=== PATIENT | female | born 1995 | race African-American/Black ===

== ENCOUNTER 2018-04-07 17:08 | Emergency (ER) | payer BC, SELFPAY ==
[~2018-04-07 17:08] MED LIST: ISOVUE-370 76%-LOCM 1 ML ONE
[2018-04-07 17:58] LABS: #Eosinphils 0.1 thou/uL (0.0-0.7); #Lymphocytes 1.6 thou/uL (1.20-3.40); #Monocytes 0.6 thou/uL (0.11-0.59); #Neutrophils 4.7 thou/uL (1.40-6.50); %Basophils 0.7 % (0.0-1.0); %Eosinophils 1.2 % (0.0-10.0); %Lymphocytes 22.2 % (21.0-51.0); %Monocytes 8.3 % (0.0-10.0); %Neutrophils 67.6 % (42.0-75.0); Hemoglobin 11.4 g/dL (12.0-16.0); Mean Corpuscular HGB CONC 34.4 g/dL (32.0-36.0); Mean Corpuscular Hemoglobin 31.4 pg (27.0-31.0); Mean Corpuscular Volume 91.2 fL (78.0-98.0); Mean Platelet Volume 7.4 fL (7.4-10.4); Platelet Count 241 thou/uL (130-400); RBC Distribution Width 11.9 % (11.5-14.5); Red Blood Cell (RBC) Count 3.63 mill/uL (4.20-5.40)
[2018-04-07 18:01] LABS: BHCG - Serum POSITIVE (NEGATIVE); Pregs Control Background? CLEAR/WHITE (CLR/WHITE); Pregs Control Bar Appear? YES (CONTROL BAR)
[2018-04-07 18:20] LABS: ALT (SGPT) 8 U/L (8-55); AST (SGOT) 11 U/L (5-34); Albumin 3.4 g/dL (3.5-5.0); Alkaline Phosphatase 66 U/L (40-150); Anion Gap 10 mmol/L (10-20); BUN (Urea Nitrogen) 10 mg/dL (7.0-18.7); Bilirubin, Total 0.6 mg/dL (0.2-1.2); Calc. Creatinine Clearance 0 mL/min (70-130); Calcium 8.6 mg/dL (7.8-10.44); Carbon Dioxide 22 mmol/L (22-29); Chloride 107 mmol/L (98-107); Estimated GFR-MDRD Greater than 90; Glucose 98 mg/dL (70-105); Potassium 3.5 mmol/L (3.5-5.1); Protein, Total 6.4 g/dL (6.0-8.3); Sodium 135 mmol/L (136-145)
[2018-04-07 18:25] LABS: CKMB 1.5 ng/mL (0-6.6); Troponin I Less than 0.010 ng/mL (< 0.028)
--- NOTE | 2018-04-07 18:30 | RAD ---
RADIOGRAPH CHEST 2 VIEWS: HISTORY: A 22-year-old female with chest pain. FINDINGS: The lungs are clear. The cardiomediastinal silhouette and hilar shadows are normal. There is no ple ural effusion. The osseous structures appear normal. There is no pneumothorax. IMPRESSION: Normal. jn [] POS: [facility]
--- NOTE | 2018-04-07 20:21 | CT ---
CTA THORAX WITH CONTRAST: (Computed Tomographic Angiography, chest, noncoronary, with contrast material, and image post process ing) (PE protocol) HISTORY: A 22-year-old female with chest pain. TECHNIQUE: IV injection of iodinated contrast: Isovue-370 70 mL. Scan acquisition timing attempted to coincide with iodinated contrast bolus reaching maximal density in pulmonary arteries. 3D MIP reconstructions. FINDINGS: Pulmonary thromboembolism: None. Lungs: Clear. Pneumothorax: None. Pleural effusion: None. Thoracic aorta: No aneurysm or dissection. Mediastinum: No lymphadenopathy or other mass. Maddy: No lymphadenopathy or other mass. IMPRESSION: Normal. janessa[] POS: [facility]
== END 2018-04-07 21:07 | disposition home or self-care (01) ==
LOC: ERS 17:08
DX: O99.89 Other specified diseases and conditions complicating pregnancy, childbirth and the puerperium (principal); R07.89 Other chest pain; O99.519 Diseases of the respiratory system complicating pregnancy, unspecified trimester; J45.909 Unspecified asthma, uncomplicated
CPT/HCPCS: 36415; 71046; 71275; 80053; 82553; 84484; 84703; 85025; 85379; 93005; 96360

== ENCOUNTER 2018-10-12 08:36 | Inpatient (IN) | payer OTHER ==
[2018-10-12 08:55] VITALS: BMI 24.8
[2018-10-12] MEDS ORDERED: NS w/ Oxytocin 10 units 500 ML IV SCH (09:41)
[2018-10-12] MEDS ORDERED: Ondansetron PF 4 MG/2 ML Vial IVP PRN ×2 (09:41→12:07)
[2018-10-12] MEDS ORDERED: Promethazine HCl 25 MG/ML VIAL IM PRN ×2 (09:41→12:07)
[2018-10-12] MEDS ORDERED: Ibuprofen 800 MG TAB PO PRN (09:41)
[2018-10-12] MEDS ORDERED: NS / Oxytocin 40 units/1000ml 1,000 ML IV PRN (09:41)
[2018-10-12] MEDS ORDERED: Lactated Ringer's 1,000 ML IV SCH ×2 (09:41)
[2018-10-12] MEDS ORDERED: Zolpidem Tartrate 5 MG TAB PO PRN (09:41)
[2018-10-12] MEDS ORDERED: Butorphanol Tartrate 1 MG/ML VIAL SLOW IVP PRN (09:41)
[2018-10-12] MEDS ORDERED: Lidocaine 1% (PF) 30 ML VIAL SC PRN (09:41)
[2018-10-12] MEDS ORDERED: HYDROcodone/Acetaminophen 5/325 mg Tablet PO PRN ×2 (09:41)
[2018-10-12] MEDS ORDERED: Fentanyl 4 mcg/Bup 0.1% Cadd 100 ML ONE (09:53)
[2018-10-12 09:55] LABS: Mean Corpuscular HGB CONC 31.9 g/dL (32.0-36.0); Mean Corpuscular Hemoglobin 29.6 pg (27.0-31.0); Mean Platelet Volume 7.6 fL (7.4-10.4); Platelet Count 257 thou/uL (130-400); RBC Distribution Width 12.5 % (11.5-14.5); Red Blood Cell (RBC) Count 4.05 mill/uL (4.20-5.40); White Blood Cell (WBC) Count 11.3 thou/uL (4.8-10.8)
[2018-10-12 10:14] LABS: ALT (SGPT) 11 U/L (8-55); AST (SGOT) 16 U/L (5-34); Albumin 3.4 g/dL (3.5-5.0); Alkaline Phosphatase 188 U/L (40-150); Anion Gap 12 mmol/L (10-20); BUN (Urea Nitrogen) 10 mg/dL (7.0-18.7); Bilirubin, Total 0.8 mg/dL (0.2-1.2); Calc. Creatinine Clearance 120 mL/min (70-130); Calcium 8.9 mg/dL (7.8-10.44); Carbon Dioxide 21 mmol/L (22-29); Chloride 107 mmol/L (98-107); Estimated GFR-MDRD Greater than 90; Globulin 3.5 g/dL (2.4-3.5); Glucose 79 mg/dL (70-105); Potassium 3.5 mmol/L (3.5-5.1); Protein, Total 6.9 g/dL (6.0-8.3); Sodium 136 mmol/L (136-145)
[2018-10-12 10:31] LABS: Syphilis Antibody Nonreactive (Nonreactive); Syphilis Antibody Index 0.03 S/CO (<1.00 Non-Reactive)
[2018-10-12 10:32] LABS: HBSAg Index 0.27 S/CO (0-0.99); Hep B Surf Ag Non-Reactive S/CO (NonReactive)
[2018-10-12] MEDS ORDERED: Lidocaine 1.5%/Epinephrine 1:200,000 5 ML AMPUL IJ ONE (10:36)
[2018-10-12] MEDS ORDERED: Bupivacaine HCl 0.25%/Epi 0.0005/PF 10 ML VIAL FS ONE (11:11)
[2018-10-12] MEDS ORDERED: Lidocaine 2% MPF 10 ML AMP (For Epidural Use) ONE (11:11)
[2018-10-12] MEDS ORDERED: NS / Oxytocin 40 units/1000ml 1,000 ML ONE (11:25)
[2018-10-12] MEDS ORDERED: Lidocaine 1% (PF) 30 ML VIAL ONE (11:25)
[2018-10-12] MEDS ORDERED: Eucerin (Mineral Oil/Petrolatum,White) 30 gm Jar TOP PRN (12:07)
[2018-10-12] MEDS ORDERED: Acetaminophen 325 MG TAB PO PRN (12:07)
[2018-10-12] MEDS ORDERED: Naloxone HCl 0.4 mg/ml Vial IVP PRN ×2 (12:07)
[2018-10-12] MEDS ORDERED: Lactated Ringer's 500 ML IV PRN (12:07)
[2018-10-12] MEDS ORDERED: diphenhydrAMINE 50 MG/ML VIAL IVP PRN (12:07)
[2018-10-12] MEDS ORDERED: ePHEDrine/0.9% NaCl/PF SYRINGE 50 mg/10 ml SLOW IVP PRN (12:07)
[2018-10-12] MEDS ORDERED: Fentanyl 4 mcg/Bupivacaine 0.1% Cassette 100 ML EPIDURAL SCH (12:15)
[2018-10-12] MEDS ORDERED: Communication Order-Pharmacy FS SCH (12:15)
[2018-10-12 12:20] LABS: Bilirubin Negative (Negative); Blood, Urine Negative (Negative); Clarity CLEAR (Clear); Glucose, Urine (Dipstick) Negative (Negative); Leukocyte Negative (Negative); Nitrite Negative (Negative); Protein, Urine (Dipstick) Negative (Neg-Trace); Specific Gravity, Urine 1.014 (1.002-1.036); pH, Urine 7.5 (5.0-9.0)
[2018-10-12 12:21] LABS: Bacteria/HPF None Seen HPF (None Seen); Hyaline Casts/LPF 0-3 HYALINE CAST LPF (0-3 Hyaline); Pathc Cast-AUWi Flag 0.27 (0-2.49); RBC/HPF 0-3 HPF (0-3); Squamous Epithelial 0-3 HPF (0-3); WBC/HPF None Seen HPF (0-3)
[2018-10-12] MEDS ORDERED: Bisacodyl 10 MG SUPP PR PRN (12:22)
[2018-10-12] MEDS ORDERED: Benzocaine/Menthol 20-0.5% 60 ML CAN TOP PRN (12:22)
[2018-10-12] MEDS ORDERED: diphenhydrAMINE 25 MG CAP PO PRN (12:22)
[2018-10-12] MEDS ORDERED: Milk Of Magnesia 30 ML UDCUP PO PRN (12:22)
[2018-10-12] MEDS ORDERED: Lanolin Ointment 7 GM TUBE TOP PRN (12:22)
--- NOTE | 2018-10-12 12:26 | PDOC.OPDEL ---
OB Operative/Delivery Note Delivery Dr/Surgeon: Sheri Pre-Delivery Diagnosis: active labor Procedure/Post Delivery Dx: operative vaginal delivery (VE assited at c/c/+4 MALDONADO for non reassuring heart rate tracing in second stage. persistent 70' s. Tight nuchal cord x1...) Weeks gestation: 38 Anesthesia: epidural - Findings A Sex: male - 1 min: 8 - 5 min: 9 - Additional Findings/Plan Placenta delivered: spontaneous Repaired Obstetrical Laceration: 2nd degree Estimated blood loss: 23
[2018-10-12] MEDS ORDERED: NS / Oxytocin 40 units/1000ml 1,000 ML IV SCH (12:30)
[2018-10-12] MEDS: Ibuprofen 800 MG TAB PO SCH ×2 (14:59→21:27)
[2018-10-12] MEDS: Ferrous Sulfate 325 MG TAB PO SCH (17:39)
[2018-10-12] MEDS: traMADol HCl 50 MG TAB PO PRN (18:36)
[2018-10-12] MEDS ORDERED: Adacel (T-DAP) 0.5 ML SYRINGE IM ONE (21:00)
[2018-10-12] MEDS: Docusate Calcium (SURFAK) 240 MG CAP PO SCH (21:27)
[2018-10-13] MEDS: traMADol HCl 50 MG TAB PO PRN (02:19)
[2018-10-13] MEDS: Ibuprofen 800 MG TAB PO SCH ×3 (05:24→21:45)
--- NOTE | 2018-10-13 07:37 | PDOC.PP ---
Post Progress Note Post Day #: 1 PO intake tolerated: yes Flatus: yes Ambulation: yes Vital Signs (12 hours) Temp Pulse Resp BP Pulse Ox 10/13/18 05:20 98.1 F 59 L 16 128/58 L 10/13/18 00:00 98.5 F 89 16 129/85 10/12/18 20:00 98.2 F 80 16 128/88 96 Weight Weight 136 lb - Physical Examination Abdominal: + bowel sounds, lochia, no distention, appropriately TTP Extremities: negative homans (B) Result Diagrams: 10/12/18 09:44 10/12/18 09:44 Additional Labs: Post Labs Blood Type B POSITIVE 10/12/18 11:15 Hep Bs Antigen Non-Reactive S/CO (NonReactive) 10/12/18 09:43 - Assessment/Plan PPD #1. Bottle Baby is doing well. Wants to be discharged if babyh doing well. F /u in 6 weeks. Doing well with ibuprofen. Has otc motrin at home.
[2018-10-13] MEDS: Docusate Calcium (SURFAK) 240 MG CAP PO SCH ×2 (10:25→21:46)
[2018-10-13] MEDS: Ferrous Sulfate 325 MG TAB PO SCH ×2 (10:25→16:04)
[2018-10-13] MEDS: Prenatal Vitamin 1 TAB PO SCH (10:25)
[2018-10-14] MEDS: Ibuprofen 800 MG TAB PO SCH ×2 (05:33→13:04)
--- NOTE | 2018-10-14 07:30 | PDOC.PP ---
Post Progress Note Post Day #: 2 PO intake tolerated: yes Flatus: yes Ambulation: yes Vital Signs (12 hours) Temp Pulse Resp BP Pulse Ox 10/13/18 19:40 98.7 F 78 18 126/88 98 Weight Weight 136 lb - Physical Examination Abdominal: + bowel sounds, lochia, no distention, appropriately TTP Result Diagrams: 10/12/18 09:44 10/12/18 09:44 Additional Labs: Post Labs Blood Type B POSITIVE 10/12/18 11:15 Hep Bs Antigen Non-Reactive S/CO (NonReactive) 10/12/18 09:43 - Assessment/Plan post day 2. Doing well. D/c home today. F/u 6 weeks.
[2018-10-14] MEDS: Ferrous Sulfate 325 MG TAB PO SCH (07:37)
[2018-10-14 08:08] VITALS: TEMP 98.3
[2018-10-14 08:18] VITALS: BP 126/84
[2018-10-14] MEDS: traMADol HCl 50 MG TAB PO PRN (08:33)
[2018-10-14] MEDS: Prenatal Vitamin 1 TAB PO SCH (08:33)
[2018-10-14] MEDS: Docusate Calcium (SURFAK) 240 MG CAP PO SCH (08:33)
== END 2018-10-14 13:51 | disposition home or self-care (01) | DRG 807 ==
LOC: L&D/OP 08:36 → L&D 09:22 → 3SW 14:46
PROVIDERS: ADMIT Obstetrics & Gynecology; ATTEND Obstetrics & Gynecology
PROC: 10E0XZZ Delivery of Products of Conception, External Approach (ICD-10-PCS; principal; 2018-10-12)
PROC: 0KQM0ZZ Repair Perineum Muscle, Open Approach (ICD-10-PCS; 2018-10-12)
DX: O76 Abnormality in fetal heart rate and rhythm complicating labor and delivery (principal); Z37.0 Single live birth; O69.1XX0 Labor and delivery complicated by cord around neck, with compression, not applicable or unspecified; Z3A.38 38 weeks gestation of pregnancy; O70.1 Second degree perineal laceration during delivery
CPT/HCPCS: 36415; 51702; 80053; 81001; 85027; 86780; 86850; 86900; 86901; 87340; 99285; J2001; J3490

== ENCOUNTER 2022-10-12 12:25 | Emergency (ER) | payer OTHER ==
[2022-10-12 13:59] LABS: #Basophils 0.1 thou/uL (0.0-0.2); #Eosinphils 0.1 thou/uL (0.0-0.7); #Lymphocytes 1.4 thou/uL (1.20-3.40); #Monocytes 0.6 thou/uL (0.11-0.59); #Neutrophils 7.7 thou/uL (1.40-6.50); %Basophils 0.5 % (0.0-1.0); %Eosinophils 1.1 % (0.0-10.0); %Lymphocytes 14.6 % (21.0-51.0); %Monocytes 6.1 % (0.0-10.0); %Neutrophils 77.7 % (42.0-75.0); Hemoglobin 10.7 g/dL (12.0-16.0); Mean Corpuscular HGB CONC 32.7 g/dL (32.0-36.0); Mean Corpuscular Hemoglobin 30.5 pg (27.0-31.0); Mean Corpuscular Volume 93.3 fl (78.0-98.0); Mean Platelet Volume 7.8 fL (7.4-10.4); Platelet Count 252 10x3/uL (130-400); RBC Distribution Width 12.1 % (11.5-14.5); Red Blood Cell (RBC) Count 3.52 mill/uL (4.20-5.40); White Blood Cell (WBC) Count 9.9 10x3/uL (4.8-10.8)
[2022-10-12 14:20] LABS: ALT (SGPT) 13 U/L (8-55); AST (SGOT) 18 U/L (5-34); Alkaline Phosphatase 72 U/L (40-110); Anion Gap 10 mmol/L (10-20); BUN (Urea Nitrogen) 14 mg/dL (7.0-18.7); Bilirubin, Total 0.4 mg/dL (0.2-1.2); Calc. Creatinine Clearance 0 mL/min (70-130); Calcium 8.4 mg/dL (7.8-10.44); Carbon Dioxide 22 mmol/L (22-29); Chloride 106 mmol/L (98-107); Estimated GFR 120; Glucose 76 mg/dL (70-105); Potassium 3.3 mmol/L (3.5-5.1); Sodium 135 mmol/L (136-145)
[2022-10-12 15:34] LABS: Bacteria/HPF 3+ HPF (None Seen); Bilirubin Negative (Negative); Blood, Urine Negative (Negative); Clarity Turbid (Clear); Glucose, Urine (Dipstick) Normal (Negative); Ketone, Urine 20 mg/dL (Negative); Leukocyte 250 Leu/uL (Negative); Nitrite Negative (Negative); Protein, Urine (Dipstick) 20 mg/dL (Neg-Trace); RBC/HPF 0-3 HPF (0-3); Specific Gravity, Urine 1.026 (1.002-1.036); Squamous Epithelial 21-50 HPF (0-3); Urobilinogen Normal mg/dL (Less than 2)
== END 2022-10-12 16:36 | disposition home or self-care (01) ==
LOC: ERS 12:25
DX: O23.42 Unspecified infection of urinary tract in pregnancy, second trimester (principal); N39.0 Urinary tract infection, site not specified; O99.891 Other specified diseases and conditions complicating pregnancy; M79.89 Other specified soft tissue disorders; Z3A.20 20 weeks gestation of pregnancy
CPT/HCPCS: 36415; 80053; 81003; 81015; 85025; 99284